=== PATIENT | female | born 1985 | race Caucasian/White ===

== ENCOUNTER 2017-12-19 12:15 | Inpatient (IN) | payer OTHER ==
[2017-12-19 12:46] VITALS: BMI 34.6
[2017-12-19] MEDS ORDERED: FLU VACC QS2017-18 36 mo. & older 0.5 ML SYRINGE IM ONE (13:00)
[2017-12-19] MEDS ORDERED: Promethazine HCl 25 MG/ML VIAL IM PRN ×2 (13:07→14:53)
[2017-12-19] MEDS ORDERED: Docusate 100 MG CAP PO PRN (13:07)
[2017-12-19] MEDS ORDERED: Misoprostol 200 MCG TAB PR PRN (13:07)
[2017-12-19] MEDS ORDERED: Acetaminophen 500 MG TAB PO PRN (13:07)
[2017-12-19] MEDS ORDERED: Methylergonovine 0.2 MG/ML VIAL IM PRN (13:07)
[2017-12-19] MEDS ORDERED: Lidocaine 1% (PF) 30 ML VIAL SC PRN (13:07)
[2017-12-19] MEDS ORDERED: Ibuprofen 800 MG TAB PO PRN (13:07)
[2017-12-19] MEDS ORDERED: Carboprost 250 MCG/ML AMP IM PRN (13:07)
[2017-12-19] MEDS ORDERED: Ondansetron HCl/PF 4 MG/2 ML Vial IVP PRN ×2 (13:07→14:53)
[2017-12-19] MEDS ORDERED: Acetaminophen/Codeine 30-300mg Tablet PO PRN ×2 (13:07→20:20)
[2017-12-19] MEDS ORDERED: LR 500 ML/Oxytocin 10 units 500 ML IV SCH (13:15)
[2017-12-19] MEDS: Lactated Ringer's 1,000 ML IV SCH ×2 (13:40→14:53)
[2017-12-19 13:41] LABS: Hemoglobin 11.5 g/dL (12.0-16.0); Mean Corpuscular HGB CONC 34.6 g/dL (32.0-36.0); Mean Corpuscular Hemoglobin 30.2 pg (27.0-31.0); Mean Corpuscular Volume 87.5 fl (81.0-99.0); Mean Platelet Volume 9.4 fL (7.4-10.4); Platelet Count 236 thou/uL (130-400); RBC Distribution Width 13.1 % (11.5-14.5); White Blood Cell (WBC) Count 9.2 thou/uL (4.8-10.8)
[2017-12-19] MEDS ORDERED: LR 500 ML/Oxytocin 10 units 500 ML ONE (13:43)
[2017-12-19 14:12] LABS: Hep B Surf Ag Non-Reactive S/CO (NonReactive)
[2017-12-19] MEDS ORDERED: Bupivacaine 0.5% 20 ML, Fentanyl 400 MCG in Sodium Chloride 0.9% 72 ML EPIDURAL SCH (14:15)
[2017-12-19] MEDS ORDERED: Bupivacaine 0.25% HCL 30 ML VIAL ONE (14:22)
[2017-12-19 14:23] LABS: Syphilis Antibody Nonreactive (Nonreactive); Syphilis Antibody Index 0.08 S/CO (<1.00 Non-Reactive)
[2017-12-19] MEDS ORDERED: Naloxone HCl 0.4 mg/ml Vial IVP PRN ×2 (14:53)
[2017-12-19] MEDS ORDERED: Eucerin (Mineral Oil/Petrolatum,White) 30 gm Jar TOP PRN (14:53)
[2017-12-19] MEDS ORDERED: diphenhydrAMINE 50 MG/ML VIAL IVP PRN (14:53)
[2017-12-19] MEDS ORDERED: Acetaminophen 325 MG TAB PO PRN (14:53)
[2017-12-19] MEDS ORDERED: ePHEDrine/0.9% NaCl/PF SYRINGE 50 mg/10 ml SLOW IVP PRN (14:53)
[2017-12-19] MEDS ORDERED: Lactated Ringer's 500 ML IV PRN (14:53)
[2017-12-19] MEDS ORDERED: Fentanyl 4mcg/Marcaine 0.1% Cassette 100 ML EPIDURAL SCH (15:00)
[2017-12-19] MEDS ORDERED: Communication Order-Pharmacy FS SCH (15:00)
--- NOTE | 2017-12-19 15:08 | PDOC.LDPN ---
Labor & Delivery Progress Note - Subjective Subjective: comfortable - Objective Vital signs reviewed and normal: yes General: NAD Dilation: 4 cm Effacement: 75% Station: 0 FHT: variability present [place] contractions every: 3-4 mins Other exam findings: pitocin started, now 4 mu/min Procedures: epidural in place Plan: continue plan of care
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
--- NOTE | 2017-12-19 17:28 | PDOC.OPDEL ---
OB Operative/Delivery Note Delivery Dr/Surgeon: Jarod Pre-Delivery Diagnosis: active labor, ruptured membrane Procedure/Post Delivery Dx: other ( over small 2* MLE) Anesthesia: epidural - Findings A Sex: male - 1 min: 8 - 5 min: 9 - Additional Findings/Plan Placenta delivered: spontaneous (Krish) Repaired Obstetrical Laceration: 2nd degree Estimated blood loss: 350 cc Compilations/Other Findings: No complications. To recover in LDR.
[2017-12-19] MEDS: LR / Pitocin 40 units/1000 ml 1,000 ML IV PRN ×2 (17:33→19:45)
[2017-12-19] MEDS ORDERED: diphenhydrAMINE 25 MG CAP PO PRN (20:20)
[2017-12-19] MEDS ORDERED: LR / Pitocin 40 units/1000 ml 1,000 ML IV SCH (20:20)
[2017-12-19] MEDS ORDERED: Adacel (T-DAP) 0.5 ML VIAL IM ONE (20:20)
[2017-12-19] MEDS ORDERED: Lanolin Ointment 7 GM TUBE TOP PRN (20:20)
[2017-12-19] MEDS ORDERED: Preparation H Ointment 28 GM TUBE PR PRN (20:20)
[2017-12-19] MEDS ORDERED: Bisacodyl 10 MG SUPP PR PRN (20:20)
[2017-12-19] MEDS ORDERED: Milk Of Magnesia 30 ML UDCUP PO PRN (20:20)
[2017-12-19] MEDS: Docusate Calcium (SURFAK) 240 MG CAP PO SCH (22:47)
[2017-12-19] MEDS: Ibuprofen 800 MG TAB PO SCH (22:47)
[2017-12-20] MEDS: Acetaminophen/Codeine 30-300mg Tablet PO PRN ×3 (02:43→22:27)
[2017-12-20] MEDS: Ibuprofen 800 MG TAB PO SCH ×3 (05:03→22:27)
[2017-12-20] MEDS: Lactated Ringer's 1,000 ML IV SCH ×2 (05:37→14:40)
[2017-12-20] MEDS ORDERED: Sodium Chloride 0.9% 10 ML ONE (05:38)
[2017-12-20 05:42] LABS: Hemoglobin 10.7 g/dL (12.0-16.0); Mean Corpuscular HGB CONC 33.5 g/dL (32.0-36.0); Mean Corpuscular Hemoglobin 29.5 pg (27.0-31.0); Mean Corpuscular Volume 88.1 fl (81.0-99.0); Platelet Count 202 thou/uL (130-400); RBC Distribution Width 13.1 % (11.5-14.5); Red Blood Cell (RBC) Count 3.64 mill/uL (4.20-5.40); White Blood Cell (WBC) Count 12.2 thou/uL (4.8-10.8)
[2017-12-20] MEDS: Docusate Calcium (SURFAK) 240 MG CAP PO SCH ×2 (09:09→22:27)
[2017-12-20] MEDS: Ferrous Sulfate 325 MG TAB PO SCH ×2 (09:10→18:35)
[2017-12-21 01:31] VITALS: BP 125/85
[2017-12-21] MEDS: Lactated Ringer's 1,000 ML IV SCH (02:58)
[2017-12-21] MEDS: Ibuprofen 800 MG TAB PO SCH ×2 (05:59→14:24)
[2017-12-21] MEDS: Docusate Calcium (SURFAK) 240 MG CAP PO SCH (08:58)
[2017-12-21] MEDS: Acetaminophen/Codeine 30-300mg Tablet PO PRN ×2 (09:06→13:08)
[2017-12-21 09:17] VITALS: TEMP 98.8
[2017-12-21] MEDS: Ferrous Sulfate 325 MG TAB PO SCH (09:56)
== END 2017-12-21 14:35 | disposition home or self-care (01) | DRG 775 ==
LOC: L&D/OP 12:15 → L&D 13:09 → 3SW 20:07
PROVIDERS: ADMIT Obstetrics & Gynecology; ATTEND Obstetrics & Gynecology
PROC: 10E0XZZ Delivery of Products of Conception, External Approach (ICD-10-PCS; principal; 2017-12-19)
PROC: 0W8NXZZ Division of Female Perineum, External Approach (ICD-10-PCS; 2017-12-19)
DX: O80 Encounter for full-term uncomplicated delivery (principal); Z37.0 Single live birth; Z3A.38 38 weeks gestation of pregnancy
CPT/HCPCS: 36415; 51702; 85027; 86780; 87340; 99285; A4216; J2001; J3010; J3490; J7050; J7120; S0020